=== PATIENT | male | born 1960 | race Caucasian/White ===

== ENCOUNTER 2016-12-12 18:29 | Emergency (ER) | payer SELFPAY ==
[2016-12-12 19:24] LABS: #Basophils 0.1 thou/uL (0.0-0.2); #Eosinphils 0.3 thou/uL (0.0-0.7); #Lymphocytes 2.8 thou/uL (1.20-3.40); #Monocytes 0.7 thou/uL (0.11-0.59); #Neutrophils 4.9 thou/uL (1.40-6.50); %Basophils 1.7 % (0.0-1.0); %Eosinophils 3.7 % (0.0-10.0); %Lymphocytes 31.9 % (21.0-51.0); %Neutrophils 54.8 % (42.0-75.0); Hemoglobin 15.2 g/dL (14.0-18.0); Mean Corpuscular HGB CONC 34.7 g/dL (32.0-36.0); Mean Corpuscular Hemoglobin 32.9 pg (27.0-31.0); Mean Corpuscular Volume 94.9 fl (80.0-94.0); Mean Platelet Volume 9.2 fL (7.4-10.4); Platelet Count 226 thou/uL (130-400); RBC Distribution Width 12.1 % (11.5-14.5); Red Blood Cell (RBC) Count 4.63 mill/uL (4.70-6.10); White Blood Cell (WBC) Count 8.9 thou/uL (4.8-10.8)
[2016-12-12 19:45] LABS: CKMB 2.4 ng/mL (0-6.6); Troponin I Less than 0.010 ng/mL (< 0.028)
[2016-12-12 19:51] LABS: ALT (SGPT) 19 U/L (0-55); AST (SGOT) 23 U/L (5-34); Albumin 4.2 g/dL (3.5-5.0); Alkaline Phosphatase 54 U/L (40-150); Anion Gap 16 mmol/L (10-20); BUN (Urea Nitrogen) 25 mg/dL (8.4-25.7); Calc. Creatinine Clearance 0 mL/min (70-130); Carbon Dioxide 26 mmol/L (22-29); Chloride 100 mmol/L (98-107); Estimated GFR-MDRD 51; Globulin 2.4 g/dL (2.4-3.5); Glucose 110 mg/dL (70-105); Potassium 3.4 mmol/L (3.5-5.1); Protein, Total 6.6 g/dL (6.0-8.3); Sodium 139 mmol/L (136-145)
--- NOTE | 2016-12-12 20:14 | RAD ---
TWO VIEWS CHEST 12/12/2016 PROVIDED CLINICAL HISTORY: Chest pain. FINDINGS: No comparisons. The cardiac and mediastinal silhouette is within normal limits. Median sternotomy changes are seen. No focal consolidation, pleural fluid, or pneumothorax apparent. IMPRESSION: No evidence for an acute cardiopulmonary process. POS: [facility]
--- NOTE | 2016-12-12 20:52 | ERRECORD ---
[facility] EMERGENCY RECORD HPI CHEST PAIN (19:22 ABUS) CHIEF COMPLAINT: Patient presents for evaluation of chest pain, that was present but has now resolved. HISTORIAN: History provided by patient, 56 yr old M with PMH of CAD s/p CABG and HTN who comes in with reports of left upper chest pain/discomfort and klaus shoulder discomfort and arm pain that has been intermittent over the past week. Denies any SOB, N/V. He did report increased physical activity this week (lifting things above his head) and is not normal for himself. He has a stone gluer in [place] with good est care with. LOCATION: Symptoms are localized, most severe in the left upper chest, most severe to Shoulders, Pain radiates, Radiation to the shoulder. QUALITY: Pain is dull in nature, described as aching. SEVERITY: Currently symptoms are moderate, Current severity of pain rated as 6/10. TIME COURSE: Gradual onset of symptoms, 1 week, There has been no change in the patient's symptoms over time, are intermittent. ASSOCIATED WITH: No associated symptoms. EXACERBATED BY: Patient's condition exacerbated by nothing. RELIEVED BY: Patient's condition relieved by nothing. ROS (19:27 ABUS) CONSTITUTIONAL: Negative constitutional review of systems, Historian denies chills, denies fever. EYES: Negative eye review of systems, Historian denies eye pain, denies eye discharge, denies vision changes. ENT: Negative ears, nose, throat review of systems, Historian denies rhinorrhea, denies sore throat. CARDIOVASCULAR: Negative cardiovascular review of systems, Historian reports chest pain, in the left chest, upper, Historian denies diaphoresis, denies dyspnea on exertion, denies edema, denies syncope, denies palpitations. RESPIRATORY: Negative respiratory review of systems, Historian denies cough, denies shortness of breath. GI: Negative gastrointestinal review of systems, Historian denies abdominal pain, denies constipation, denies diarrhea, denies nausea, denies vomiting. GENITOURINARY MALE: Negative genitourinary review of systems, Historian denies dysuria, denies hematuria. MUSCULOSKELETAL: Negative musculoskeletal review of systems, Historian denies back pain, denies fall, denies injury, denies neck pain. SKIN: Negative skin review of systems, Historian denies rash, denies skin changes. NEUROLOGIC: Negative neurologic review of systems, Historian denies headache. HEMO/LYMPHATIC: Normal hematologic/lymphatic system review, &a-1R&a+25V*p+0X*[id number]*c202B*c15G*c2P*p-0X&a-25V&a+1R Name: Rafael Aragon Sr : 1960 M56 MedRec: [id number] AcctNum: [id number] Prepared: Addy Dec 12, 2016 21:18 by Interface Page 1 of 4 pMD [facility] EMERGENCY RECORD Historian denies abnormal blood clotting. PAST MEDICAL HISTORY (19:25 MCRS) MEDICAL HISTORY: Past medical history includes cardiac history, myocardial infarction, Past medical history includes history of hypertension, which has been treated.REVIEWED 12-12-16. MALE SURGICAL HISTORY: Surgical history of coronary artery bypass graft surgery, three vessels. REVIEWED 12-12-16. PSYCHIATRIC HISTORY: Notes: DENIES. SOCIAL HISTORY: Patient drinks socially, every week, Patient denies drug use, Patient currently uses tobacco, daily, Patient has smoked for 30 years, Patient smokes 1 pack per day, Patient denies alcohol use, Patient denies drug use, Patient currently uses tobacco, smokes cigarettes, Patient smokes 1 pack per day. KNOWN ALLERGIES No Known Drug Allergies (Unconfirmed) CURRENT MEDICATIONS No recorded medications VITAL SIGNS VITAL SIGNS: BP: 159/90 (Sitting), Pulse: 93, Resp: 18, Temp: 98.2 (Tympanic), Pain: 6 (Sharp), O2 sat: 95 on Room Air, Time: 12/12/2016 18:33. (18:33 MCRS) BP: 147/85, Pulse: 84, Resp: 18, Pain: 3, O2 sat: 936 on RA, Time: 12/12/2016 19:25. (19:25 MCRS) BP: 167/78, Pulse: 76, Resp: 16, Pain: 4, O2 sat: 94 on Room Air, Time: 12/12/2016 19:20. (19:20 MCRS) BP: 147/85, Pulse: 80, Resp: 18, Pain: 2, O2 sat: 96 on Room Air, Time: 12/12/2016 19:32. (19:32 MCRS) BP: 141/75, Pulse: 80, Resp: 18, Pain: 2, O2 sat: 95 on Room Air, Time: 12/12/2016 19:45. (19:45 MCRS) BP: 137/80, Pulse: 77, Resp: 14, Pain: 2, O2 sat: 95 on Room Air, Time: 12/12/2016 20:00. (20:00 MCRS) BP: 144/69, Pulse: 76, Resp: 20, Pain: 2, O2 sat: 92 on Room Air, Time: 12/12/2016 20:15. (20:15 MCRS) (21:09 MCRS) BP: 133/74, Pulse: 70, Resp: 20, Pain: 2, O2 sat: 94 on Room Air, Time: 12/12/2016 20:30. (20:30 MCRS) BP: 119/70, Pulse: 78, Resp: 18, Pain: 2, O2 sat: 96 on Room Air, Time: 12/12/2016 20:51. (20:51 MCRS) PHYSICAL EXAM (19:27 ABUS) CONSTITUTIONAL: Vital signs reviewed, Patient afebrile, Pulse normal, Blood pressure normal, Respiratory rate normal, Patient appears non toxic, Patient appears pain free, Patient alert and oriented to person, place and time. HEAD: Head exam normal, Head exam included findings of head &a-1R&a+25V*p+0X*v8107P*c202B*c15G*c2P*p-0X&a-25V&a+1R Name: Mahesh Clark Rafael R : 1960 M56 MedRec: [id number] AcctNum: [id number] Prepared: Addy Dec 12, 2016 21:18 by Interface Page 2 of 4 pMD [facility] EMERGENCY RECORD atraumatic, normocephalic. EYES: Eye exam normal, Eye exam included findings of eyelids normal to inspection, Pupils equally round and reactive to light, Extraocular muscles intact, no nystagmus. ENT: ENT exam normal, Ear exam normal, external ear normal, tympanic membranes normal, no bleeding, Pharynx exam normal, Uvula exam normal, Tonsil exam normal, Mouth exam normal, mucous membranes moist, teeth normal. NECK: Neck exam normal, Neck exam included findings of normal range of motion, Trachea midline, no meningeal signs, no cervical adenopathy, no tenderness. RESPIRATORY CHEST: Respiratory and chest exam normal, Respiratory exam included findings of no respiratory distress, Breath sounds clear. CARDIOVASCULAR: Cardiovascular assessment normal, Cardiovascular exam included findings of heart rate regular rate and rhythm, Heart sounds normal. ABDOMEN MALE: Abdominal exam included findings of abdomen nontender, Bowel sounds normal, no distension, no mass, no pulsatile masses, no peritoneal signs, no rigidity, no guarding, no rebound, Rovsing's sign absent. BACK: Back exam normal, Back exam included findings of normal inspection, range of motion normal, no tenderness. UPPER EXTREMITY: Upper extremity exam normal, Upper extremity exam included findings of inspection normal, Range of motion normal, Motor strength normal, Sensation intact, Radial pulse normal. LOWER EXTREMITY: Lower extremity exam normal, Lower extremity exam included findings of inspection normal, Range of motion normal, Motor strength normal, Sensation intact, Posterior tibial pulse normal, Pedal pulse normal. NEURO: Neuro exam normal, Neuro exam findings include patient oriented to person, place and time, Speech normal, Gait normal. SKIN: Skin exam normal, Skin exam included findings of skin warm, dry, and normal in color, no rash. PSYCHIATRIC: Psychiatric exam normal, Normal affect. DOCTOR NOTES (19:28 ABUS) TEXT: 56 yr old M with PMH of CAD s/p CABG and HTN who comes in with reports of left upper chest pain/discomfort and klaus shoulder discomfort and arm pain that has been intermittent over the past week. Denies any SOB, N/V. He did report increased physical activity this week (lifting things above his head) and is not normal for himself. He has a stone gluer in [place] with good est care with. EXAM: Normal ECG: NSR DDx: ACS, Unstable Angina, NSTEMI, costochondritis, pericarditis, myocarditis, bronchitis, pneumonia, viral URI, hyperreactive airway disease, allergies, allergic rhinitis. Plan: CXR, ECG, pulse ox, repeat VS, labs (CBC, CMP, trops, BNP) UPDATE: Cardiac enzymes negative. Given his recent increased physical &a-1R&a+25V*p+0X*[id number]*c202B*c15G*c2P*p-0X&a-25V&a+1R Name: Rafael Aragon Sr: 1960 M56 MedRec: [id number] AcctNum: [id number] Prepared: SunDec 12, 2016 21:18 by Interface Page 3 of 4 pMD [facility] EM[facility]GENCY RECORD activity being the likely cause for his shoulder pain and that his pain worsens only with matthew the muscles of his forearm and hands, he wanted to go home and call his stone gluer tomorrow morning that he has good est care with. He felt safe with this plan and I gave him strict return precautions and he verbalized understanding and agreement. Final Dispo: D/c home with close follow up with stone gluer in [place]. PROBLEM LIST No recorded problems DIAGNOSIS (20:42 ABUS) FINAL: PRIMARY: Shoulder pain, ADDITIONAL: Chest wall pain. PRESCRIPTION No recorded prescriptions DISPOSITION PATIENT: Disposition Type: Discharge, Disposition: *Discharge Home, Condition: Good. (20:42 ABUS) Disposition Transport: Car. (21:15 MCRS) Patient left the department. (21:16 MCRS) Dhillon: ABUS=MD Leny, Miguel MCRS=HOWARD Green, Jorge L &a-1R&a+25V*p+0X*[id number]*c202B*c15G*c2P*p-0X&a-25V&a+1R Name: Aragon Rafael Clark Radha : 1960 M56 MedRec: [id number] AcctNum: [id number] Prepared: Addy Dec 12, 2016 21:18 by Interface Page 4 of 4 pMD MTDD
--- NOTE | 2016-12-12 20:59 | PICIS ---
[facility] EMERGENCY RECORD TRIAGE (SunDec 12, 2016 18:38 MCRS) TRIAGE NOTES: PAIN TO BILAT SHOULDERS RADIATING DOWN BILAT ARMS FOR 1 WEEK. (SunDec 12, 2016 18:38 MCRS) PATIENT: NAME: Rafael Aragon Sr, AGE: 56, GENDER: male, : Sun1960, TIME OF GREET: SunDec 12, 2016 18:30, PREFERRED LANGUAGE: [place], ETHNICITY: Not or , ECODE BILLING MAP: [facility], SSN: [id number], Zip Code: [address], KG WEIGHT: 110.68, PHONE: , , , PERSON ID: [id number], PCP: MD [place] Olayemi. (SunDec 12, 2016 18:38 MCRS) COMPLAINT: HIGH RISK COMPLAINT: CHEST PAIN. (SunDec 12, 2016 18:38 MCRS) ADMISSION: URGENCY: 3 Urgent, ADMISSION SOURCE: Home, TRANSPORT: CAR, BED: TRIAGE. (SunDec 12, 2016 18:38 MCRS) ASSESSMENT: Assessment: COMPLAINT OF CENTRAL CHEST PAIN THAT INCREASES IN PAIN WHEN RAISES BILAT ARMS - STATED HIS SHOULDERS BILAT HURT WITH RADIATED DOWN ARMS X1 WEEK, Symptoms began 1 WEEK. (19:25 MCRS) PAIN: Patient complains of pain described as, itching, penetrating, sharp, on a scale 0-10 patient rates pain as 6, Pain is intermittent, Aggravating factors:, Aggravating factors include RAISING ARMS - EXERCISE, Relieving factors present, Relieving factors include SHOWER - NORCO. (19:25 MCRS) IMMUNIZATIONS: Flu vaccine not up to date, Tetanus immunization up to date, Date of immunization: 2012, Pneumococcal vaccine not up to date. (19:25 MCRS) SIRS SCORING: Heart Rate 55-109 (0), Temp range 96.8-101.1 (0), respiratory rate 12-24 (0), Mental Status altered: no (0), Infection or Suspected Infection: No. (19:25 MCRS) PROVIDERS: TRIAGE NURSE: Jorge L Green RN. (SunDec 12, 2016 18:38 MCRS) VITAL SIGNS: BP 159/90, (Sitting), Pulse 93, Resp 18, Temp 98.2, (Tympanic), Pain 6, (Sharp), O2 Sat 95, on Room Air, Time 12/12/2016 18:33. (18:33 MCRS) PREVIOUS VISIT ALLERGIES: No Known Drug Allergies. (SunDec 12, 2016 18:38 MCRS) No Known Drug Allergies. (19:25 MCRS) KNOWN ALLERGIES No Known Drug Allergies (Unconfirmed) CURRENT MEDICATIONS No recorded medications VITAL SIGNS VITAL SIGNS: BP: 159/90 (Sitting), Pulse: 93, Resp: 18, Temp: 98.2 (Tympanic), Pain: 6 (Sharp), O2 sat: 95 on Room Air, Time: 12/12/2016 18:33. (18:33 MCRS) BP: 147/85, Pulse: 84, Resp: 18, Pain: 3, O2 sat: 936 on RA, Time: &a-1R&a+25V*p+0X*w1140O*c202B*c15G*c2P*p-0X&a-25V&a+1R Name: Aragon Rafael Clark : 1960 M56 MedRec: [id number] AcctNum: [id number] Prepared: SunDec 12, 2016 21:24 by Interface Page 1 of 9 pMD [facility] EMERGENCY RECORD 12/12/2016 19:25. (19:25 MCRS) BP: 167/78, Pulse: 76, Resp: 16, Pain: 4, O2 sat: 94 on Room Air, Time: 12/12/2016 19:20. (19:20 MCRS) BP: 147/85, Pulse: 80, Resp: 18, Pain: 2, O2 sat: 96 on Room Air, Time: 12/12/2016 19:32. (19:32 MCRS) BP: 141/75, Pulse: 80, Resp: 18, Pain: 2, O2 sat: 95 on Room Air, Time: 12/12/2016 19:45. (19:45 MCRS) BP: 137/80, Pulse: 77, Resp: 14, Pain: 2, O2 sat: 95 on Room Air, Time: 12/12/2016 20:00. (20:00 MCRS) BP: 144/69, Pulse: 76, Resp: 20, Pain: 2, O2 sat: 92 on Room Air, Time: 12/12/2016 20:15. (20:15 MCRS) (21:09 MCRS) BP: 133/74, Pulse: 70, Resp: 20, Pain: 2, O2 sat: 94 on Room Air, Time: 12/12/2016 20:30. (20:30 MCRS) BP: 119/70, Pulse: 78, Resp: 18, Pain: 2, O2 sat: 96 on Room Air, Time: 12/12/2016 20:51. (20:51 MCRS) NURSING ASSESSMENT: CARDIOVASCULAR (19:25 MCRS) CONSTITUTIONAL: Patient arrives ambulatory, Gait steady, History obtained from patient, Patient appears comfortable, Patient cooperative, Patient alert, Oriented to person, place and time, Skin warm, Skin dry, Skin normal in color, Mucous membranes pink, Mucous membranes moist, Patient is well-groomed, Patient complains of CENTRAL CHEST PAIN, X1 WEEK - PAIN INCREASES WITH RAISING ARMS. PAIN: sharp pain, Pain radiates, BILAT ARMS, on a scale 0-10 patient rates pain as 6, Pain exacerbated by, RAISING ARMS - EXERCISE, Pain relieved by, NORCO AND SHOWER HELPED. NONVERBAL PAIN: Notes: NO OUTWARD SIGNS OF PAIN. CARDIOVASCULAR: Cardiovascular assessment findings include heart rate normal, Heart rhythm normal sinus, Heart sounds normal, Bilateral blood pressures equal, Left arm blood pressure: 167/78, Right arm blood pressure: 147/85, Left radial pulse +3(easily palpated, considered normal), Right radial pulse +3(easily palpated, considered normal). RESPIRATORY/CHEST: Breath sounds clear, Respiratory assessment findings include respiratory effort easy, Respirations regular, Conversing normally, Neck and chest exam findings include trachea midline, Chest expansion equal, Chest movement symmetrical. SAFETY: Side rails up, Cart/Stretcher in lowest position, Family at bedside, Call light within reach, Hospital ID band on. VITAL SIGNS: BP: 147, / 85, Pulse: 84, Resp: 18, Pain: 3, O2 sat: 936, on: RA. NURSING PROCEDURE: BRICK CHIMNEY SUPERVISOR (18:55 MCRS) PATIENT IDENTIFIER: Patient actively involved in identification process, Patient's identity verified by hospital ID bracelet. BRICK CHIMNEY SUPERVISOR: Cardiac monitoring indicated for complaint of chest pain, Patient placed on bus driver/monitor, Heart rate: &a-1R&a+25V*p+0X*o9759P*c202B*c15G*c2P*p-0X&a-25V&a+1R Name: Rafael Aragon Sr : 1960 M56 MedRec: [id number] AcctNum: [id number] Prepared: SunDec 12, 2016 21:24 by Interface Page 2 of 9 pMD [facility] EMERGENCY RECORD 84, showing normal sinus rhythm, without ectopy, Patient placed on non-invasive blood pressure monitor, with disposable blood pressure cuff applied, Patient placed on continuous pulse oximetry, Adult/pediatric oxisensor applied. SAFETY: Side rails up, Cart/Stretcher in lowest position, Family at bedside, Call light within reach, Hospital ID band on. NURSING PROCEDURE: DISCHARGE NOTE (21:00 MCRS) DISCHARGE: Patient discharged to home, ambulating without assistance, driving self, unaccompanied, Summary of Care printed/ provided, Patient requested and was provided an electronic copy of Discharge Instructions, Transition record given to patient, Discharge instructions given to patient, Simple or moderate discharge teaching performed, discharge instructions, Medication reconciliation form given, and reviewed with see list, Above person(s) verbalized understanding of discharge instructions and follow-up care, Patient treated and evaluated by physician. BELONGINGS: Valuables remain with patient. VITAL SIGNS: BP: 116, / 71, Pulse: 83, Resp: 18, Temp: 97.4, Pain: 2, O2 sat: 96, on: ra. NURSING PROCEDURE: IV PATIENT IDENITIFIER: Patient actively involved in identification process, Patient's identity verified by hospital ID ricoet. (19:05 MCRS) IV SITE 1: IV therapy indicated for medication administration, IV established, to the left hand, using a 20 gauge catheter, in one attempt, IV site prepped with CHLOROPREP, Saline lock established, Flushed with normal saline (mls): 5ML, Labs drawn at time of placement, labeled in the presence of the patient and sent to lab, Notes: SPECIMENS LABLED IN VIEW OF PATIENT. (19:05 MCRS) FOLLOW-UP SITE 1: After procedure, 2x2 dressing applied, IV discontinued, due to patient being discharged, catheter intact. (20:55 MCRS) SAFETY: Side rails up, Cart/Stretcher in lowest position, Family at bedside, Call light within reach, Hospital ID band on. (19:05 MCRS) NURSING PROCEDURE: TRANSPORT TO TESTS PATIENT IDENTIFIER: Patient actively involved in identification process, Patient's identity verified by hospital ID bracelet. (19:05 MCRS) TRANSPORT TO TESTS: Transport indicated to facilitate diagnosis, Patient transported to x-ray, via wheelchair, Accompanied by x-ray bulk mail technician. (19:05 MCRS) FOLLOW-UP: After procedure, patient returned to emergency department, Notes: PLACED BACK ON MONITOR. (19:15 MCRS) ORDER DETAILS &a-1R&a+25V*p+0X*k5165F*c202B*c15G*c2P*p-0X&a-25V&a+1R Name: Rafael Aragon Sr : 1960 M56 MedRec: [id number] AcctNum: [id number] Prepared: SunDec 12, 2016 21:24 by Interface Page 3 of 9 [facility] EMERGENCY RECORD Order Name: B type Natriuretic Peptide, Status: Active, Time: 18:42 12/12/2016, User: CAMELIA, - Ordered for: MD Michele Anthony, - Entered by: MD Michele Anthony - Addy Dec 12, 2016 18:42, - Quantity: 1, Order Name: BRICK CHIMNEY SUPERVISOR ED, Status: Done, Time: 19:18 12/12/2016, User: [facility], - Ordered for: MD Michele Anthony, - Entered by: MD Michele Anthony - Addy Dec 12, 2016 18:42, - Quantity: 1, Order Name: Cardiac Profile w/CKMB & Troponin - I, Status: Active, Time: 18:42 12/12/2016, User: CAMELIA, - Ordered for: MD Michele Anthony, - Entered by: MD Michele Anthony - Addy Dec 12, 2016 18:42, - Quantity: 1, Order Name: CBC with Differential, Status: Active, Time: 18:42 12/12/2016, User: ABUS, - Ordered for: MD Michele Anthony, - Entered by: MD Michele Anthony - Addy Dec 12, 2016 18:42, - Quantity: 1, Order Name: Comprehensive Metabolic Panel, Status: Active, Time: 18:42 12/12/2016, User: ABUS, - Ordered for: MD Michele Anthony, - Entered by: MD Michele Anthony - carter Dec 12, 2016 18:42, - Quantity: 1, Order Name: EKG 12 Lead in Emergency Room, Status: Active, Time: 18:42 12/12/2016, User: ABUS, - Ordered for: MD Michele Anthony, - Entered by: MD Michele Anthony - Tue Dec 12, 2016 18:42, - Quantity: 1, Order Name: PTT, Status: Active, Time: 18:42 12/12/2016, User: ABUS, - Ordered for: MD Michele Anthony, - Entered by: MD Michele Anthony - Addy Dec 12, 2016 18:42, - Quantity: 1, Order Name: SALINE LOCK, Status: Done, Time: 19:18 12/12/2016, User: MCRS, - Ordered for: MD Michele Anthony, - Entered by: MD Michele Anthony - Tue Dec 12, 2016 18:42, - Quantity: 1, Order Name: XR Chest Pa & Lat STANDARD, Status: Active, Time: 18:42 12/12/2016, User: ABUS, - Ordered for: MD Michele Anthony, - Entered by: MD Michele Anthony - carter Dec 12, 2016 18:42, - Quantity: 1. HPI CHEST PAIN (19:22 ABUS) CHIEF COMPLAINT: Patient presents for evaluation of chest pain, that was present but has now resolved. HISTORIAN: History provided by patient, 56 yr old M with PMH of CAD s/p CABG and HTN who comes in with reports of left upper chest &a-1R&a+25V*p+0X*j9582P*c202B*c15G*c2P*p-0X&a-25V&a+1R Name: Mahesh Clark Rafael R : 1960 M56 MedRec: [id number] AcctNum: [id number] Prepared: SunDec 12, 2016 21:24 by Interface Page 4 of 9 pMD [facility] EMERGENCY RECORD pain/discomfort and klaus shoulder discomfort and arm pain that has been intermittent over the past week. Denies any SOB, N/V. He did report increased physical activity this week (lifting things above his head) and is not normal for himself. He has a program manager slp in [place] with good est care with. LOCATION: Symptoms are localized, most severe in the left upper chest, most severe to Shoulders, Pain radiates, Radiation to the shoulder. QUALITY: Pain is dull in nature, described as aching. SEVERITY: Currently symptoms are moderate, Current severity of pain rated as 6/10. TIME COURSE: Gradual onset of symptoms, 1 week, There has been no change in the patient's symptoms over time, are intermittent. ASSOCIATED WITH: No associated symptoms. EXACERBATED BY: Patient's condition exacerbated by nothing. RELIEVED BY: Patient's condition relieved by nothing. ROS (19:27 ABUS) CONSTITUTIONAL: Negative constitutional review of systems, Historian denies chills, denies fever. EYES: Negative eye review of systems, Historian denies eye pain, denies eye discharge, denies vision changes. ENT: Negative ears, nose, throat review of systems, Historian denies rhinorrhea, denies sore throat. CARDIOVASCULAR: Negative cardiovascular review of systems, Historian reports chest pain, in the left chest, upper, Historian denies diaphoresis, denies dyspnea on exertion, denies edema, denies syncope, denies palpitations. RESPIRATORY: Negative respiratory review of systems, Historian denies cough, denies shortness of breath. GI: Negative gastrointestinal review of systems, Historian denies abdominal pain, denies constipation, denies diarrhea, denies nausea, denies vomiting. GENITOURINARY MALE: Negative genitourinary review of systems, Historian denies dysuria, denies hematuria. MUSCULOSKELETAL: Negative musculoskeletal review of systems, Historian denies back pain, denies fall, denies injury, denies neck pain. SKIN: Negative skin review of systems, Historian denies rash, denies skin changes. NEUROLOGIC: Negative neurologic review of systems, Historian denies headache. HEMO/LYMPHATIC: Normal hematologic/lymphatic system review, Historian denies abnormal blood clotting. PAST MEDICAL HISTORY (19:25 MCRS) MEDICAL HISTORY: Past medical history includes cardiac history, myocardial infarction, Past medical history includes history &a-1R&a+25V*p+0X*q5819F*c202B*c15G*c2P*p-0X&a-25V&a+1R Name: Rafael Aragon Sr : 1960 M56 MedRec: [id number] AcctNum: [id number] Prepared: Addy Dec 12, 2016 21:24 by Interface Page 5 of 9 pMD [facility] EMERGENCY RECORD of hypertension, which has been treated.REVIEWED 12-12-16. MALE SURGICAL HISTORY: Surgical history of coronary artery bypass graft surgery, three vessels. REVIEWED 12-12-16. PSYCHIATRIC HISTORY: Notes: DENIES. SOCIAL HISTORY: Patient drinks socially, every week, Patient denies drug use, Patient currently uses tobacco, daily, Patient has smoked for 30 years, Patient smokes 1 pack per day, Patient denies alcohol use, Patient denies drug use, Patient currently uses tobacco, smokes cigarettes, Patient smokes 1 pack per day. PHYSICAL EXAM (19:27 ABUS) CONSTITUTIONAL: Vital signs reviewed, Patient afebrile, Pulse normal, Blood pressure normal, Respiratory rate normal, Patient appears non toxic, Patient appears pain free, Patient alert and oriented to person, place and time. HEAD: Head exam normal, Head exam included findings of head atraumatic, normocephalic. EYES: Eye exam normal, Eye exam included findings of eyelids normal to inspection, Pupils equally round and reactive to light, Extraocular muscles intact, no nystagmus. ENT: ENT exam normal, Ear exam normal, external ear normal, tympanic membranes normal, no bleeding, Pharynx exam normal, Uvula exam normal, Tonsil exam normal, Mouth exam normal, mucous membranes moist, teeth normal. NECK: Neck exam normal, Neck exam included findings of normal range of motion, Trachea midline, no meningeal signs, no cervical adenopathy, no tenderness. RESPIRATORY CHEST: Respiratory and chest exam normal, Respiratory exam included findings of no respiratory distress, Breath sounds clear. CARDIOVASCULAR: Cardiovascular assessment normal, Cardiovascular exam included findings of heart rate regular rate and rhythm, Heart sounds normal. ABDOMEN MALE: Abdominal exam included findings of abdomen nontender, Bowel sounds normal, no distension, no mass, no pulsatile masses, no peritoneal signs, no rigidity, no guarding, no rebound, Rovsing's sign absent. BACK: Back exam normal, Back exam included findings of normal inspection, range of motion normal, no tenderness. UPPER EXTREMITY: Upper extremity exam normal, Upper extremity exam included findings of inspection normal, Range of motion normal, Motor strength normal, Sensation intact, Radial pulse normal. LOWER EXTREMITY: Lower extremity exam normal, Lower extremity exam included findings of inspection normal, Range of motion normal, Motor strength normal, Sensation intact, Posterior tibial pulse normal, Pedal pulse normal. NEURO: Neuro exam normal, Neuro exam findings include patient oriented to person, place and time, Speech normal, Gait normal. SKIN: Skin exam normal, Skin exam included findings of skin warm, &a-1R&a+25V*p+0X*j7902Z*c202B*c15G*c2P*p-0X&a-25V&a+1R Name: Rafael Aragon Sr : 1960 M56 MedRec: [id number] AcctNum: [id number] Prepared: SunDec 12, 2016 21:24 by Interface Page 6 of 9 pMD [facility] EMERGENCY RECORD dry, and normal in color, no rash. PSYCHIATRIC: Psychiatric exam normal, Normal affect. EVENTS TRANSFER: Triage to Emergency Triage. (SunDec 12, 2016 18:38 MCRS) Emergency Triage to Main ED -05. (18:39 MDEB) Removed from Emergency Main ED -05. (21:16 MCRS) DOCTOR NOTES (19:28 ABUS) TEXT: 56 yr old M with PMH of CAD s/p CABG and HTN who comes in with reports of left upper chest pain/discomfort and klaus shoulder discomfort and arm pain that has been intermittent over the past week. Denies any SOB, N/V. He did report increased physical activity this week (lifting things above his head) and is not normal for himself. He has a program manager slp in [place] with good est care with. EXAM: Normal ECG: NSR DDx: ACS, Unstable Angina, NSTEMI, costochondritis, pericarditis, myocarditis, bronchitis, pneumonia, viral URI, hyperreactive airway disease, allergies, allergic rhinitis. Plan: CXR, ECG, pulse ox, repeat VS, labs (CBC, CMP, trops, BNP) UPDATE: Cardiac enzymes negative. Given his recent increased physical activity being the likely cause for his shoulder pain and that his pain worsens only with matthew the muscles of his forearm and hands, he wanted to go home and call his program manager slp tomorrow morning that he has good est care with. He felt safe with this plan and I gave him strict return precautions and he verbalized understanding and agreement. Final Dispo: D/c home with close follow up with program manager slp in [place]. PROBLEM LIST No recorded problems DIAGNOSIS (20:42 ABUS) FINAL: PRIMARY: Shoulder pain, ADDITIONAL: Chest wall pain. DISPOSITION PATIENT: Disposition Type: Discharge, Disposition: *Discharge Home, Condition: Good. (20:42 ABUS) Disposition Transport: Car. (21:15 MCRS) Patient left the department. (21:16 MCRS) INSTRUCTION (20:45 ABUS) DISCHARGE: CHEST WALL STRAIN, SHOULDER PAIN (UNCERTAIN CAUSE). FOLLOWUP: [facility] Tiki, [facility], [address] [place] [address], , Follow up with Primary Care Physician in 1-2 days. &a-1R&a+25V*p+0X*l9453Z*c202B*c15G*c2P*p-0X&a-25V&a+1R Name: Rafael Aragon Sr : 1960 M56 MedRec: [id number] AcctNum: [id number] Prepared: Addy Dec 12, 2016 21:24 by Interface Page 7 of 9 pMD [facility] EMERGENCY RECORD SPECIAL: As discussed in the ER before you left, please follow up with your primary care doctor or call the referral made for you here in the ED today to establish outpatient follow up for your medical care. Please come back sooner if you start to develop fever, chest pain or tightness or pressure, shortness of breath, worsening pain, swelling, or symptoms that are new or symptoms the concern you. All of your cardiac enzymes were normal. ECG showed normal sinus rhythm without any ischemic changes. Your creatinine level was 1.44 here and no baseline. This is a reflection of your kidney function and will need to be repeated in 1-2 weeks for re-evaluation. PRESCRIPTION No recorded prescriptions IMAGING *EKG: Image captured from scanner. (19:53 ADEA) *SUPPLY CHARGE SHEET: Image captured from scanner. (21:14 MCRS) *DISCHARGE INSTRUCTIONS RECEIPT: Image captured from scanner. (21:14 [facility]) ADMIN DIGITAL SIGNATURE: MD Leny, Miguel. (20:47 ABUS) HOWARD Green, Jorge L. (21:15 MCRS) RESULTS LABORATORY: CBC with Differential Collection DT: SunDec 12, 2016 19:22, White Blood Cell (WBC) Count 8.9 thou/uL, Range (4.8-10.8), *Red Blood Cell (RBC) Count 4.63 - L mill/uL, Range (4.70-6.10), Hemoglobin 15.2 g/dL, Range (14.0-18.0), Hematocrit 43.9 %, Range (42.0-52.0), *Mean Corpuscular Volume 94.9 - H fl, Range (80.0-94.0), *Mean Corpuscular Hemoglobin 32.9 - H pg, Range (27.0-31.0), Mean Corpuscular HGB CONC 34.7 g/dL, Range (32.0-36.0), RBC Distribution Width 12.1 %, Range (11.5-14.5), Platelet Count 226 thou/uL, Range (130-400), Mean Platelet Volume 9.2 fL, Range (7.4-10.4), %Neutrophils 54.8 %, Range (42.0-75.0), %Lymphocytes 31.9 %, Range (21.0-51.0), %Monocytes 8.0 %, Range (0.0-10.0), %Eosinophils 3.7 %, Range (0.0-10.0), *%Basophils 1.7 - H %, Range (0.0-1.0), #Neutrophils 4.9 thou/uL, Range (1.40-6.50), #Lymphocytes 2.8 thou/uL, Range (1.20-3.40), *#Monocytes 0.7 - H thou/uL, Range (0.11-0.59), #Eosinphils 0.3 thou/uL, Range (0.0-0.7), #Basophils 0.1 thou/uL, Range (0.0-0.2). (19:29 ABUS) B type Natriuretic Peptide Collection DT: SunDec 12, 2016 19:22, B type Natriuretic Peptide Less than 10.0 pg/mL, Range (0-100). (20:06 MDEB) &a-1R&a+25V*p+0X*d9289C*c202B*c15G*c2P*p-0X&a-25V&a+1R Name: Rafael Aragon Sr : 1960 M56 MedRec: [id number] AcctNum: [id number] Prepared: SunDec 12, 2016 21:24 by Interface Page 8 of 9 pMD [facility] EMERGENCY RECORD Comprehensive Metabolic Panel Collection DT: SunDec 12, 2016 19:22, Sodium 139 mmol/L, Range (136-145), *Potassium 3.4 - L mmol/L, Range (3.5-5.1), Chloride 100 mmol/L, Range (98-107), Carbon Dioxide 26 mmol/L, Range (22-29), Anion Gap 16 mmol/L, Range (10-20), BUN (Urea Nitrogen) 25 mg/dL, Range (8.4-25.7), *Creatinine 1.44 - H mg/dL, Range (0.7-1.3), Estimated GFR-MDRD 51 , Reference Range for Estimated GFR: Greater than 90, mL/min/1.73 m2 NOTE: The MDRD equation has not been validated for use, with the elderly (over 70 years of age), women, patients with, serious comorbid condition or persons with extremes of body size, muscle, mass, or nutritional status. , *Glucose 110 - H mg/dL, Range (70-105), Calcium 9.0 mg/dL, Range (7.8-10.44), Bilirubin, Total 1.0 mg/dL, Range (0.2-1.2), Protein, Total 6.6 g/dL, Range (6.0-8.3), NOTE: Plasma values are generally 0.3 to 0.5 g/dL higher than serum values, due to the presence of fibrinogen. , Albumin 4.2 g/dL, Range (3.5-5.0), Globulin 2.4 g/dL, Range (2.4-3.5), Alb/Glob Ratio 1.8 g/dL, Range (1.2-2.2), Alkaline Phosphatase 54 U/L, Range (40-150), AST (SGOT) 23 U/L, Range (5-34), ALT (SGPT) 19 U/L, Range (0-55). (20:06 MDEB) Cardiac Profile w/CKMB & TropI Collection DT: SunDec 12, 2016 19:22, CKMB 2.4 ng/mL, Range (0-6.6), Troponin I Less than 0.010 ng/mL, Range (< 0.028), Reference Range , 0.00 - 0.028 ng/mL Negative 0.029 - 0.29 ng/mL , Indeterminate Greater or Equal to 0.3 ng/mL Strongly suggests SD , . (20:06 MDEB) PTT Collection DT: SunDec 12, 2016 19:22, PTT 27.4 SEC, Range (22.9-36.1). (20:06 MDEB) Dhillon: CAMELIA=MD Leny, Miguel DAVID=HOWARD Wyatt, Álvaro MCRS=HOWARD Green, Jorge L CRAWFORDEB=HOWARD Flores, Jazmin &a-1R&a+25V*p+0X*b8148X*c202B*c15G*c2P*p-0X&a-25V&a+1R Name: Mahesh ClarkRafael Radha : 1960 M56 MedRec: [id number] AcctNum: [id number] Prepared: SunDec 12, 2016 21:24 by Interface Page 9 of 9 pMD MTDD
== END 2016-12-12 20:35 | disposition home or self-care (01) ==
LOC: MADERS 18:29
DX: R07.89 Other chest pain (principal); M25.512 Pain in left shoulder; I25.2 Old myocardial infarction; I10 Essential (primary) hypertension; F17.210 Nicotine dependence, cigarettes, uncomplicated
CPT/HCPCS: 36415; 71020; 80053; 82553; 83880; 84484; 85025; 85730; 93005

== ENCOUNTER 2017-08-28 09:15 | Emergency (ER) | payer SELFPAY ==
[2017-08-28 09:57] LABS: #Basophils 0.1 thou/uL (0.0-0.2); #Eosinphils 0.3 thou/uL (0.0-0.7); #Lymphocytes 1.7 thou/uL (1.20-3.40); #Monocytes 0.6 thou/uL (0.11-0.59); #Neutrophils 7.1 thou/uL (1.40-6.50); %Basophils 1.3 % (0.0-1.0); %Eosinophils 2.8 % (0.0-10.0); %Lymphocytes 17.8 % (21.0-51.0); %Monocytes 5.6 % (0.0-10.0); %Neutrophils 72.5 % (42.0-75.0); Hemoglobin 17.6 g/dL (14.0-18.0); Mean Corpuscular HGB CONC 34.2 g/dL (32.0-36.0); Mean Corpuscular Hemoglobin 33.4 pg (27.0-31.0); Mean Corpuscular Volume 97.7 fl (80.0-94.0); Mean Platelet Volume 8.1 fL (7.4-10.4); Platelet Count 256 thou/uL (130-400); RBC Distribution Width 12.2 % (11.5-14.5); Red Blood Cell (RBC) Count 5.28 mill/uL (4.70-6.10); White Blood Cell (WBC) Count 9.8 thou/uL (4.8-10.8)
[2017-08-28] MEDS ORDERED: Meclizine HCl 25 MG TAB ONE (09:58)
[2017-08-28] MEDS ORDERED: Lisinopril 10 MG TAB ONE (10:30)
[2017-08-28] MEDS ORDERED: Carvedilol 6.25 MG TAB ONE (10:30)
[2017-08-28 12:13] LABS: ALT (SGPT) 20 U/L (8-55); AST (SGOT) 18 U/L (5-34); Albumin 4.2 g/dL (3.5-5.0); Alkaline Phosphatase 68 U/L (40-150); Anion Gap 11 mmol/L (10-20); BUN (Urea Nitrogen) 11 mg/dL (8.4-25.7); Bilirubin, Total 1.5 mg/dL (0.2-1.2); Calc. Creatinine Clearance 0 mL/min (70-130); Carbon Dioxide 28 mmol/L (22-29); Chloride 101 mmol/L (98-107); Estimated GFR-MDRD 68; Glucose 178 mg/dL (70-105); Magnesium 2.2 mg/dL (1.6-2.6); Potassium 3.9 mmol/L (3.5-5.1); Protein, Total 7.2 g/dL (6.0-8.3); Sodium 136 mmol/L (136-145)
[2017-08-28 12:16] LABS: CKMB 1.6 ng/mL (0-6.6); Troponin I Less than 0.010 ng/mL (< 0.028)
[2017-08-28] MEDS ORDERED: Furosemide 40 MG TAB ONE (13:01)
== END 2017-08-28 14:45 | disposition home or self-care (01) ==
LOC: MADERS 09:15
DX: R42 Dizziness and giddiness (principal); I11.0 Hypertensive heart disease with heart failure; I50.9 Heart failure, unspecified; I25.2 Old myocardial infarction; F17.210 Nicotine dependence, cigarettes, uncomplicated; Z79.899 Other long term (current) drug therapy
CPT/HCPCS: 80053; 82553; 83735; 83880; 84484; 85025; 93005